=== PATIENT | male | born 1930 | race Caucasian/White ===

== ENCOUNTER 2017-12-26 13:37 | Emergency (ER) | payer MEDICARE, MEDICAID | END 2017-12-26 15:16 | disposition short-term general hospital (02) | LOC: MADERS 13:37 | DX: K94.23 Gastrostomy malfunction (principal); F32.9 Major depressive disorder, single episode, unspecified; F03.90 Unspecified dementia, unspecified severity, without behavioral disturbance, psychotic disturbance, mood disturbance, and anxiety; N40.0 Benign prostatic hyperplasia without lower urinary tract symptoms | CPT/HCPCS: 99285 ==